=== PATIENT | male | born 1985 | race African-American/Black ===

== ENCOUNTER 2017-04-02 06:17 | Emergency (ER) | payer OTHER ==
--- NOTE | ~2017-04-02 | CR72 ---
[facility] A Service of [facility] & [facility] RADIOLOGY TEXT RESULTS PATIENT: JOSEMANUEL MOHAN LOCATION: [facility] : [birth year] UNIT #: [id number] AGE: [address]: Kathi Mendoza MD SEX: M ORDER DR: [id number] [facility] [address] [place], [place] [address] [id number] MR#: [id number] Acc #: [id number] NAME: JOSEMANUEL MOHAN : 1985 SEX: M STUDY DATE/TIME: 04/02/2017 7:17 UNIT: [facility] ROOM: STUDY DESCRIPTION: CR Chest Single View Portable Attending Physician: Kathi Mendoza M.D. Ordering Physician: Kathi Mendoza M.D. Primary Care Physician: No Primary Care Physician MEDICAL IMAGING REPORT This report is preliminary unless electronic signature is present EXAM Portable chest. INDICATIONS Chest pain, cough and congestion for 2 days. COMPARISON 01/03/16. FINDINGS A portable view of the chest was obtained. The heart size and vascularity are normal. Lungs are clear. The bones are normal. IMPRESSION No active disease. Dictated by... Papi Morales M.D. THIS IS AN ELECTRONICALLY VERIFIED REPORT Papi Morales M.D. at 04/02/2017 12:43 PM FEL/cyndi TD: 04/02/2017 10:11 JOB #: [id number] MEDICAL IMAGING REPORT Page 1 of 1 COPY
== END 2017-04-02 08:57 | disposition home or self-care (01) ==
LOC: CED 06:17
DX: J20.9 Acute bronchitis, unspecified (principal)
CPT/HCPCS: 71010; 99285